=== PATIENT | female | born 1945 | race Caucasian/White ===

== ENCOUNTER 2022-11-28 14:16 | Emergency (ER) | payer MEDICARE ==
[~2022-11-28] VITALS: Ht 170.2 cm; Wt 70.0 kg
[~2022-11-28 14:16] MED LIST: ALPR-624 PO; AMI25T PO; AMIT75TA2 PO; FAMO-1 PO; OMEP40CA21 PO; OXYB1PAT TOP
[2022-11-28] MEDS ORDERED: naloxone 2mg/2ml inj IV STA (14:27)
[2022-11-28] MEDS ORDERED: normal saline 1000ml 1,000 ML IV ONE (14:30)
--- NOTE | 2022-11-28 14:46 | NUR ---
TC TO POISON CONTROL WITH LIST OF PATIENT MEDICATIONS. POISON CONTROL STATES TO PROVIDE SUPPORTIVE CARE, CHECK EKG, ASA LEVEL, ACETAMINOPHEN LEVEL, AND ETOH LEVEL. WATCH FOR HAND BUFFING WHEEL FORMER AND RESP DEPRESSION. FLUMER AND OBSERVE UNTIL SYMPTOMS RESOLVE.
[2022-11-28 15:00] LABS: BASOPHILS % (AUTO) 0.6 % (0-1); EOSINOPHILS # (AUTO) 0.1 X10'3 (0-0.9); EOSINOPHILS % (AUTO) 1.3 % (0-6); HEMATOCRIT 37.4 % (35.0-45.0); HEMOGLOBIN 12.2 g/dl (12.0-16.0); LYMPHOCYTES # (AUTO) 1.5 X10'3 (1.1-4.8); LYMPHOCYTES % (AUTO) 20.5 % (21-51); MEAN CORPUSCULAR HGB CONC 32.7 g/dL (33.0-36.5); MEAN CORPUSCULAR VOLUME 94.7 FL (78-98); MEAN PLATELET VOLUME 8.1 FL (7.4-10.4); MONOCYTES # (AUTO) 0.5 X10'3 (0-0.9); MONOCYTES % (AUTO) 6.9 % (2-12); NEUTROPHILS % (AUTO) 70.7 % (42-75); PLATELET COUNT 254 X10'3 (140-440); RED BLOOD COUNT 3.95 X10'6 (4.20-5.60); RED CELL DISTRIBUTION WIDTH 14.4 % (11.5-14.5); WHITE BLOOD COUNT 7.1 X10'3 (4.5-11.0)
[2022-11-28 15:14] LABS: ALANINE AMINOTRANSFERASE 63 U/L (12-78); ALBUMIN 3.2 G/DL (3.4-5.0); ALBUMIN/GLOBULIN RATIO 1.2 (1.1-1.5); ALKALINE PHOSPHATASE 77 IU/L (46-116); ANION GAP 8 (8-16); ASPARTATE AMINO TRANSFERASE 30 U/L (10-37); BILIRUBIN,TOTAL 0.2 MG/DL (0.1-1.0); BLOOD UREA NITROGEN 7 MG/DL (7-18); BUN/CREATININE RATIO 8.3 (10.0-20.0); CALCIUM 8.7 MG/DL (8.5-10.1); CHLORIDE 109 MMOL/L (99-107); CREATININE 0.84 MG/DL (0.40-0.90); GLUCOSE 109 MG/DL (70-104); POTASSIUM 3.6 MMOL/L (3.5-5.1); SODIUM 142 MMOL/L (135-145); TOTAL CARBON DIOXIDE 25.3 MMOL/L (24-32); TOTAL PROTEIN 5.9 G/DL (6.4-8.2); eGFR 66 ML/MIN
[2022-11-28 15:22] LABS: CLARITY,URINE CLEAR (Clear); COLOR,URINE YELLOW (Yellow); GLUCOSE, URINE NEGATIVE (Neg); KETONES,URINE TRACE mg/dl (Neg); LEUKOCYTE ESTERASE ,URINE NEGATIVE (Neg); OCCULT BLOOD,URINE NEGATIVE (Neg); PROTEIN,URINE NEGATIVE (Neg); UROBILINOGEN,URINE 0.2 E.U/dL (0.2-1.0)
[2022-11-28 15:23] LABS: NITRITES, URINE NEGATIVE (Neg); UA COLLECTION TYPE STRAIGHT CATH
[2022-11-28 15:33] LABS: URINE AMPHETAMINE SCREEN NEGATIVE (Neg); URINE BARBITUATE SCREEN NEGATIVE (Neg); URINE BENZODIAZEPINES SCREEN POSITIVE (Neg); URINE CANNABINOID SCREEN NEGATIVE (Neg); URINE COCAINE SCREEN NEGATIVE (Neg); URINE METHADONE SCREEN NEGATIVE (Neg); URINE OPIATE SCREEN NEGATIVE (Neg); URINE PHENCYCLIDINE SCREEN NEGATIVE (Neg)
[2022-11-28 16:23] LABS: ETHANOL < 0.010 GM/DL (0.0-0.010)
[2022-11-28] MEDS ORDERED: AMIT-286 PO (20:40)
[2022-11-28] MEDS ORDERED: TIZA4TAB11 PO (20:40)
[2022-11-28] MEDS ORDERED: DOCU-149 PO (20:40)
[2022-11-28] MEDS ORDERED: ALPR-624 PO (20:40)
[2022-11-28] MEDS ORDERED: CITA40TA17 PO (20:40)
[2022-11-28] MEDS ORDERED: ALPR1TAB2 PO (20:42)
[2022-11-28] MEDS ORDERED: VILA10TA PO (20:42)
[2022-11-28] MEDS ORDERED: RABE20TA31 PO (21:02)
[2022-11-28] MEDS ORDERED: VITAMIN B (21:02)
[2022-11-28] MEDS ORDERED: POLY119P2 PO (21:02)
[2022-11-28] MEDS ORDERED: [UNRECOGNIZED DRUG - CODE] PO (21:02)
[2022-11-28] MEDS ORDERED: AMIT75TA2 PO (21:02)
[2022-11-28] MEDS ORDERED: [UNRECOGNIZED DRUG - OTHER] PO (21:02)
[2022-11-28] MEDS ORDERED: PYRI200T9 PO (21:02)
[2022-11-28] MEDS ORDERED: CHOL20004 PO (21:02)
[2022-11-28] MEDS ORDERED: [UNRECOGNIZED DRUG - OTHER] (21:02)
[2022-11-28] MEDS ORDERED: ATOR20TA PO (21:02)
[2022-11-28] MEDS ORDERED: OXYB1PAT TOP (21:02)
[2022-11-28] MEDS ORDERED: ATEN25TA7 PO (21:02)
[2022-11-28] MEDS ORDERED: [UNRECOGNIZED DRUG - OTHER] PO (21:08)
--- NOTE | 2022-11-28 21:29 | NUR ---
The patient moved to bed 25 from the main ER. She is fixated on her "pelvic floor muscles" She wants to go into great detail and had difficulty moving off the topic. She apparently has had numerous providers one of which fired her as patient. She denies hx of mental illness, she denies hx of SA, she denies hx of psychiatric hospitalization.
--- NOTE | 2022-11-28 22:24 | NUR ---
PATIENT'S [phone]
--- NOTE | 2022-11-28 23:05 | NUR ---
Call from Poison Control. Update given
--- NOTE | 2022-11-29 | NUR ---
The patient appears to be sleeping
[2022-11-29] MEDS ORDERED: RABE20TA18 PO (00:49)
--- NOTE | 2022-11-29 02:42 | NUR ---
Assumed care of patient. Pt appears to be sleeping rr even and unlabored.
--- NOTE | 2022-11-29 04:24 | NUR ---
Pt has had 2 episodes of bowel incontinence. pt was assisted with cleaning up and changing and returned to bed. Pt was provided with earplugs due to loud yelling from another patient in a nearby bed. Pt appears to be resting comfortably no s/s distress.
--- NOTE | 2022-11-29 06:29 | NUR ---
Patient was up to the BR but now appears to be sleeping on her right side. No distress observed. Continue to monitor.
[2022-11-29] MEDS ORDERED: pantoprazole 40mg Tablet.DR PO SCH (07:30)
[2022-11-29] MEDS ORDERED: pyridoxine 50mg tablet PO SCH (08:00)
[2022-11-29] MEDS ORDERED: atenolol 25mg tablet PO SCH (08:00)
[2022-11-29] MEDS ORDERED: citalopram 20mg tablet PO SCH (08:00)
[2022-11-29] MEDS ORDERED: polyethylene glycol 3350 17gm powd pack PO SCH (08:00)
[2022-11-29] MEDS ORDERED: ALPRAZolam 0.5mg tablet PO SCH (08:00)
--- NOTE | 2022-11-29 08:11 | NUR ---
Patient eating breakfast. No distress observed. Continue to monitor.
[2022-11-29 09:03] VITALS: BP 121/82
--- NOTE | 2022-11-29 09:46 | NUR ---
Patient keep running to the BR with diarrhea. Patient needed to change her pants. Continue to monitor.
--- NOTE | 2022-11-29 10:05 | NUR ---
Julissa HUMPHRIES, evaluating patient. Continue to monitor.
--- NOTE | 2022-11-29 11:14 | NUR ---
Julissa HUMPHRIES, and patient's at bedside. No distress observed. Continue to monitor.
[2022-11-29] MEDS ORDERED: amitriptyline 25mg tablet PO SCH (21:00)
== END 2022-11-29 12:00 ==
LOC: ER 14:17
DX: T42.4X2A Poisoning by benzodiazepines, intentional self-harm, initial encounter (principal); Z20.822 Contact with and (suspected) exposure to COVID-19; R41.82 Altered mental status, unspecified; Y92.89 Other specified places as the place of occurrence of the external cause; K21.9 Gastro-esophageal reflux disease without esophagitis; G89.29 Other chronic pain; F31.9 Bipolar disorder, unspecified; Z88.8 Allergy status to other drugs, medicaments and biological substances; Z88.1 Allergy status to other antibiotic agents; Z79.899 Other long term (current) drug therapy; Z79.1 Long term (current) use of non-steroidal anti-inflammatories (NSAID); Z79.2 Long term (current) use of antibiotics
CPT/HCPCS: 36415; 70450; 80053; 80305; 80320; 80329; 81003; 84443; 85025; 87811; 93005; 96361; 96374; 99285; J2310; J7030

== ENCOUNTER 2023-06-28 14:43 | Emergency (ER) | payer MEDICARE ==
[~2023-06-28] VITALS: Ht 193 cm; Wt 62.0 kg
[~2023-06-28 14:43] MED LIST changes: -ALPR-624 PO; +ALPR1TAB2 PO; -AMI25T PO; +ATEN25TA7 PO; +CITA40TA17 PO; -FAMO-1 PO; -OMEP40CA21 PO; +POLY119P2 PO; +PYRI200T9 PO; +RABE20TA18 PO; +VILA10TA PO
[2023-06-28 15:06] VITALS: TEMP 97.9
[2023-06-28] MEDS ORDERED: benztropine 1mg tablet PO SCH (15:25)
[2023-06-28 15:33] LABS: BASOPHILS % (AUTO) 0.5 % (0-1); EOSINOPHILS # (AUTO) 0.2 X10'3 (0-0.9); EOSINOPHILS % (AUTO) 2.3 % (0-6); HEMATOCRIT 39.9 % (35.0-45.0); HEMOGLOBIN 13.3 g/dl (12.0-16.0); LYMPHOCYTES # (AUTO) 1.9 X10'3 (1.1-4.8); LYMPHOCYTES % (AUTO) 25.2 % (21-51); MEAN CORPUSCULAR HGB CONC 33.3 g/dL (33.0-36.5); MEAN PLATELET VOLUME 7.9 FL (7.4-10.4); MONOCYTES # (AUTO) 0.5 X10'3 (0-0.9); NEUTROPHILS # (AUTO) 4.9 X10'3 (1.8-7.7); PLATELET COUNT 282 X10'3 (140-440); RED BLOOD COUNT 4.15 X10'6 (4.20-5.60); WHITE BLOOD COUNT 7.5 X10'3 (4.5-11.0)
[2023-06-28 15:43] LABS: ANION GAP 6 (8-16); BLOOD UREA NITROGEN 13 MG/DL (7-18); BUN/CREATININE RATIO 15.9 (10.0-20.0); CALCIUM 8.9 MG/DL (8.5-10.1); CHLORIDE 105 MMOL/L (99-107); CREATININE 0.82 MG/DL (0.40-0.90); GLUCOSE 100 MG/DL (70-104); MAGNESIUM 2.5 MG/DL (1.5-2.4); POTASSIUM 4.1 MMOL/L (3.5-5.1); SODIUM 141 MMOL/L (135-145); eCRCL 50 ML/MIN; eGFR 68 ML/MIN
[2023-06-28 15:44] LABS: ALANINE AMINOTRANSFERASE 29 U/L (12-78); ALBUMIN 3.7 G/DL (3.4-5.0); ALBUMIN/GLOBULIN RATIO 1.2 (1.1-1.5); ALKALINE PHOSPHATASE 80 IU/L (46-116); ASPARTATE AMINO TRANSFERASE 23 U/L (10-37); BILIRUBIN,TOTAL 0.4 MG/DL (0.1-1.0); C-REACTIVE PROTEIN 0.25 MG/DL (0.0-0.5); TOTAL PROTEIN 6.8 G/DL (6.4-8.2)
[2023-06-28 19:57] LABS: BILIRUBIN,URINE NEGATIVE (Neg); CLARITY,URINE CLEAR (Clear); COLOR,URINE YELLOW (Yellow); GLUCOSE, URINE NEGATIVE (Neg); KETONES,URINE NEGATIVE (Neg); LEUKOCYTE ESTERASE ,URINE NEGATIVE (Neg); NITRITES, URINE NEGATIVE (Neg); OCCULT BLOOD,URINE NEGATIVE (Neg); PH,URINE 6.5 (4.8-8.0); PROTEIN,URINE NEGATIVE (Neg); UA COLLECTION TYPE CLN CATCH MIDSTREAM; UROBILINOGEN,URINE 0.2 E.U/dL (0.2-1.0)
[2023-06-28 20:19] LABS: URINE AMPHETAMINE SCREEN NEGATIVE (Neg); URINE BARBITUATE SCREEN NEGATIVE (Neg); URINE BENZODIAZEPINES SCREEN POSITIVE (Neg); URINE CANNABINOID SCREEN NEGATIVE (Neg); URINE COCAINE SCREEN NEGATIVE (Neg); URINE METHADONE SCREEN NEGATIVE (Neg); URINE OPIATE SCREEN NEGATIVE (Neg); URINE PHENCYCLIDINE SCREEN NEGATIVE (Neg)
[2023-06-28] MEDS ORDERED: BENZ1TAB93 PO (20:59)
[2023-06-28] MEDS ORDERED: LORazepam 1 MG tablet PO ONE (21:05)
[2023-06-28 22:04] VITALS: BP 174/92; PULSE 80; RESP 16; O2SAT 99
== END 2023-06-28 22:04 | disposition home or self-care (01) ==
LOC: ER 14:45
DX: R25.1 Tremor, unspecified (principal); M79.2 Neuralgia and neuritis, unspecified; G89.29 Other chronic pain; K21.9 Gastro-esophageal reflux disease without esophagitis; Z91.018 Allergy to other foods; Z88.1 Allergy status to other antibiotic agents; Z91.041 Radiographic dye allergy status; Z79.899 Other long term (current) drug therapy; Z90.49 Acquired absence of other specified parts of digestive tract
CPT/HCPCS: 36415; 80053; 80305; 81003; 83735; 85025; 86140; 93005; 99285

== ENCOUNTER → 2024-05-25 | Outpatient (CLI) | payer MEDICARE ==
[~2024-05-25] MED LIST changes: +RABE-13 PO; -RABE20TA18 PO
== END | disposition home or self-care (01) ==
LOC: MRI02 10:40
PROVIDERS: ATTEND Family Medicine
DX: N28.1 Cyst of kidney, acquired (principal); K44.9 Diaphragmatic hernia without obstruction or gangrene; D49.512 Neoplasm of unspecified behavior of left kidney; Z90.49 Acquired absence of other specified parts of digestive tract
CPT/HCPCS: 74181

== ENCOUNTER 2024-08-17 14:35 | Emergency (ER) | payer MEDICARE ==
[~2024-08-17] VITALS: Ht 162.6 cm; Wt 67.0 kg
[2024-08-17 14:39] VITALS: TEMP 97.9
[2024-08-17 17:05] VITALS: BP 157/82; PULSE 77; RESP 16; O2SAT 98
== END 2024-08-17 18:05 | disposition home or self-care (01) ==
LOC: ER 14:36
DX: K62.89 Other specified diseases of anus and rectum (principal); K59.00 Constipation, unspecified; K21.9 Gastro-esophageal reflux disease without esophagitis; F41.9 Anxiety disorder, unspecified; F32.A Depression, unspecified; Z88.1 Allergy status to other antibiotic agents; Z88.8 Allergy status to other drugs, medicaments and biological substances; Z90.49 Acquired absence of other specified parts of digestive tract
CPT/HCPCS: 74022; 99284

== ENCOUNTER 2025-02-08 14:33 | Outpatient (CLI) | payer MEDICARE ==
--- NOTE | 2025-02-08 16:18 | RADIOLOGY REPORT ---
Procedure: DI ACUTE ABDOMEN Exam Date: 02/08/2025 02:58 PM History: CONSTIPATION Comparison Study: None Technique: AP of the chest AP upright of the abdomen AP supine of the abdomen FINDINGS: No focal evidence of airspace disease. The cardiomediastinal silhouette is within normal limits. No acute osseous lesions. Nonobstructive bowel gas pattern noted. There is no evidence for pneumoperitoneum. No abnormal calcif ications noted. IMPRESSION: Non-specific gas-filled loops of bowel. large stool bueden END IMPRESSION:
== END 2025-02-08 23:59 | disposition home or self-care (01) ==
LOC: RAD 14:33
PROVIDERS: ATTEND Family Medicine
DX: K59.09 Other constipation (principal)
CPT/HCPCS: 74022

== ENCOUNTER 2025-03-14 14:38 | Outpatient (CLI) | payer MEDICARE, OTHER ==
[~2025-03-14 14:38] MED LIST changes: +AMIT75TA PO; -AMIT75TA2 PO
--- NOTE | 2025-03-14 16:12 | RADIOLOGY REPORT ---
Exam: DI ABDOMEN,SINGLE VIEW(KUB) Indication: CONSTIPATION Comparison: DI ACUTE ABDOMEN on DOS: 02/08/25, DI ACUTE ABDOMEN on DOS: 08/17/24, MR MRI ABDOMEN on DOS : 05/25/24 Technique: 2 radiographic views of the abdomen. Findings: Right upper quadrant surgical clips. Nonobstructive bowel gas pattern noted. There is no definite evidence for pneumoperitoneum. Atherosclerotic vascular calcifications. No abnormal calcifications identified. Impression: 1. Nonobstructive bowel gas pattern noted.
== END 2025-03-14 23:59 | disposition home or self-care (01) ==
LOC: RAD 14:38
PROVIDERS: ATTEND Family Medicine
DX: R14.3 Flatulence (principal); K59.00 Constipation, unspecified; I70.0 Atherosclerosis of aorta
CPT/HCPCS: 74018

== ENCOUNTER 2025-04-25 10:20 | Emergency (ER) | payer MEDICARE, OTHER ==
[~2025-04-25] VITALS: Ht 162.6 cm; Wt 65.9 kg
--- NOTE | 2025-04-25 11:12 | RADIOLOGY REPORT ---
CLINICAL INFORMATION: Fall injury. TECHNIQUE: Axial imaging was obtained through the brain without contrast. Axial CT imaging of the cervical spine was also obtained without contrast. Coronal and sagittal reformatted images were obtained, reviewed, and stored. One or more of the following dose reduction techniques were used: Automated exposure control. Adjustment of mA and/or kV according to patient size. CTDIvol = 57.34 mGy DLP = 964.78 mGy-cm COMPARISON: CT HEAD on DOS: 11/28/22 FINDINGS: CT HEAD: There is no acute intracranial hemorrhage. No mass effect or midline shift. The ventricles and sulci are within normal limits in size for age. Basal cisterns are patent. Scattered areas of hypoattenuation are seen in the periventricular and subcortical white matter, which are nonspecific but most likely sequelae of small vessel ischemic disease. The calvarium is unremarkable. Paranasal sinuses and mastoid air cells are clear. CT CERVICAL SPINE: There is straightening of the normal cervical lordosis. No significant spondylolisthesis. Vertebral body heights are maintained. Posterior elements are intact. No evidence of acute fracture. Moderate to severe disc space narrowing at C6-C7 with associated endplate sclerosis and endplate spurring. Prevertebral and paraspinal soft tissues are unremarkable. IMPRESSION: 1. No CT evidence of acute intracranial abnormality. 2. No evidence of acute fracture or spondylolisthesis in the cervical spine. 3. Nonacute findings as described above.
[2025-04-25 11:13] VITALS: BP 164/92; PULSE 87; RESP 18; O2SAT 96
--- NOTE | 2025-04-25 11:30 | RADIOLOGY REPORT ---
CLINICAL INDICATION: KNEE PAIN TECHNIQUE: 3 radiographic views of the right knee were obtained. Comparison: None FINDINGS/IMPRESSION: There is no evidence of acute fracture or dislocation. The visualized joint space is well maintained. The alignment is anatomical. There is no radiopaque foreign body.
[2025-04-25] MEDS: LIDOcaine 1% W/epiNEPHrine 1:100,000 20ml vial SQ ONE (12:06)
--- NOTE | 2025-04-25 13:06 | Physician Documentation ---
History of Present Illness ~ Chief Complaint: Mechanical Fall Stated Complaint: FALL NO THINNERS WITH HEAD STRIKE Time Seen by MD: 10:37 Primary Medical Doctor: Dr. Nicolas Source: patient Mode of Arrival: POV, Ambulatory Exam Limitations: no limitations HPI Mrs. Smith is a 80 y/o female who presents to the ED from home s/p a GLF. She states that she was in the restroom and loss her balance and fell. She hit hit head and has a laceration just above her left eye. She denies LoC. No c/o [place] or acute visual changes. No neck pain or stiffness. She denies taking systemic anticoagulation. No focal numbness/tingling/weakness. No chest pain/pressure/palpitations or discomfort. No SOB or difficulty breathing. Occurred: just prior to arrival Tetanus within 5 Years?: Yes Medication Reconciliation Allergies: Coded Allergies: caffeine (Verified Allergy, Unknown, 04/25/25) ciprofloxacin (Verified Allergy, Unknown, 04/25/25) erythromycin base (Verified Allergy, Unknown, 04/25/25) tetracycline (Verified Allergy, Unknown, 04/25/25) Uncoded Allergies: "NARCOTICS" (Allergy, Unknown, 08/12/15) Scheduled Alprazolam (Xanax), 1 TAB PO DAILY, (Reported) Amitriptyline HCl (Amitriptyline HCl), 1 TAB PO HS, (Reported) Atenolol (Tenormin), 0.5 MG PO DAILY, (Reported) Citalopram Hydrobromide (Citalopram HBr), 1 TAB PO DAILY, (Reported) Polyethylene Glycol 3350 (Miralax), 17 GM PO BID, (Reported) Pyridoxine HCl (Vitamin B6) (B-6), 0.5 MG PO DAILY, (Reported) Rabeprazole Sodium (Aciphex), 1 TAB PO DAILY, (Reported) Vilazodone Hydrochloride (Viibryd), 1 TAB PO DAILY, (Reported) Miscellaneous Medications Oxybutynin (Oxytrol), 1 PATCH TOP, (Reported) Past Medical History Past Medical History: Constipation, GERD, Inflammatory Bowel Dz, Pancreatitis, Chronic Back Pain, Anxiety, Depression Past Surgical History: cholecystectomy Patient History: (CHF) Congestive heart failure MOTHER, Onset:Unknown (CVA) Cerebrovascular accident MOTHER, Onset:Unknown (Cancer) Malignant carcinoid tumor FATHER, Onset:Unknown (DM Type 2) Diabetes mellitus type 2 FATHER, Onset:Unknown (RI) Myocardial infarction FATHER, Onset:Unknown Hypercholesterolemia FATHER, Onset:Unknown Alcohol Use: None Drug Use: none Lives with: Family Lives In: Home Review of Systems All Other Systems at this time: Reviewed and Negative Physical Exam Vital Signs: RN Vital Signs have been reviewed: Yes, Temperature: 98.7, Source: Temporal, Heart Rate: 87, Respiratory Rate: 18, BP: 164/92, Pulse Oximetry: 96, Weight: 65.910 Oxygen Flow Rate: 0 General Appearance: alert, WD/WN, no apparent distress Head: no evidence of injury Face 5 cm laceration above left eye. No active bleeding. No midface instability. Pupils/EOM/Fundus: PERRLA Ears: normal inspection Nose: normal inspection Mouth: normal inspection Neck: non-tender Respiratory: lungs clear, normal breath sounds, no respiratory distress Cardiovascular: normal peripheral pulses Gastrointestinal: normal palpation Rectal: deferred Back: normal inspection Pelvis: normal Skin: warm/dry Skin Laceration above left eye Abrasion to right knee. Neurologic: oriented x4 Motor / Sensory: no motor deficit Cerebellar function exam: normal Thoughts/Hallucinations: normal thought pattern Affect: appropriate Procedures Laceration Repair : Anesthesia: Lidocaine, Lidocaine w/ Epi Undermining: none Foreign Body: not identified Repaired: skin Wound Repaired With: sutures Suture Size/Type: 3-0 Layer Closure?: No Dressing Applied: simple Tolerated Procedure Well?: yes, no complications Progress Results/Orders Results/Orders Completed Orders - FLORENTIN YANEZ MD Lidocaine 1% W/Epi 1:100,000 (Xylocaine (04/25/25 11:20) Vital Signs 04/25/25 04/25/25 04/25/25 10:22 11:13 11:13 Temp 98.7 98.7 Pulse 92 87 Resp 14 16 18 B/P (MAP) 165/95 164/92 (116) Pulse Ox 96 96 O2 Flow Rate 0 0 Medical Decision Making Differential Dx:Considerations: Include: Closed head injury, Cerebral contusion, Pulmonary contusion, Spine injury, Vascular injury, Foreign body(s), Laceration(s), Encephalopathy Additional Comment Ms. Smith is a 80 y/o female who presents to the ED following a GLF at home. While here in the ED, she remained hemodynamically normal with ABC's intact and in NAD. She is afebrile and nontoxic. Neuro exam nonfocal. No meningismus on exam. I reviewed her head CT and it was negative for an acute bleed, space- occupying lesion, or large territorial infarct. Laceration was repaired (see procedure note for additional details if required). She is without complaints and is ambulating in the department with a steady gait. She is safe for d/c home. Given follow-up and return instructions. She voiced understanding and agreement with d/c instructions. Departure Disposition: HOME / SELF CARE / HOMELESS Impression: Primary Impression: Fall Additional Impression: Facial laceration Condition: Improved Referrals: NO PRIMARY CARE PROVIDER (PCP) Education Educated: Patient Educated regarding: diagnosis, treatment Signature Scribe Signature: N/A Attestation: N/A FLORENTIN YANEZ MD Apr 25, 2025 13:06
[2025-04-25 13:23] VITALS: TEMP 98.7
== END 2025-04-25 13:25 | disposition home or self-care (01) ==
LOC: ER 10:21
DX: S01.81XA Laceration without foreign body of other part of head, initial encounter (principal); S80.211A Abrasion, right knee, initial encounter; E78.00 Pure hypercholesterolemia, unspecified; E11.9 Type 2 diabetes mellitus without complications; G89.29 Other chronic pain; I50.9 Heart failure, unspecified; K21.9 Gastro-esophageal reflux disease without esophagitis; F41.9 Anxiety disorder, unspecified; F32.A Depression, unspecified; Z87.19 Personal history of other diseases of the digestive system; Z88.1 Allergy status to other antibiotic agents; Z90.49 Acquired absence of other specified parts of digestive tract; Z79.899 Other long term (current) drug therapy; W01.0XXA Fall on same level from slipping, tripping and stumbling without subsequent striking against object, initial encounter; Y93.89 Activity, other specified; Y92.89 Other specified places as the place of occurrence of the external cause; Y99.8 Other external cause status
CPT/HCPCS: 12013; 70450; 72125; 73560; 99284; A6402; J7030; Z7610; 12002; A6449